=== PATIENT | female | born 1995 | race African-American/Black ===

== ENCOUNTER 2021-12-02 20:27 | Emergency (ER) | payer BC ==
[~2021-12-02] VITALS: Ht 167.6 cm; Wt 136.1 kg
[2021-12-02 20:59] LABS: BASOPHILS % 0.1 % (0.0-1.0); EOSINOPHILS # (AUTO) 0.1 (0.0-0.4); EOSINOPHILS % 0.8 % (0.0-6.0); HEMATOCRIT 41.9 % (34.2-44.1); HEMOGLOBIN 13.5 g/dL (12.0-16.0); LYMPHOCYTES % 30.7 % (18.0-39.1); MEAN CORPUSCULAR HEMOGLOBIN 28.6 pg (28-32); MEAN CORPUSCULAR HGB CONC 32.2 g/dL (31-35); MEAN CORPUSCULAR VOLUME 88.8 fL (81-99); MONOCYTES # (AUTO) 0.7 (0.2-0.8); MONOCYTES % 7.4 % (4.4-11.3); NEUTROPHILS % 60.8 % (38.7-80.0); PLATELET COUNT 260 x10e3/uL (140-360); RED BLOOD COUNT 4.72 x10e6/uL (3.6-5.1); RED CELL DISTRIBUTION WIDTH 12.8 % (11.7-14.4)
[2021-12-02 21:13] LABS: INR 0.9; PARTIAL THROMBOPLASTIN TIME 26.8 seconds (23.8-35.5); PROTHROMBIN TIME 12.8 seconds (11.9-14.5)
[2021-12-02 21:16] LABS: ANION GAP 14.4 mmol/L (8-16); CALCIUM 9.3 mg/dL (8.4-10.2); CREATININE, SERUM 1.1 mg/dL (0.57-1.11); POTASSIUM 3.4 mmol/L (3.5-5.1)
[2021-12-02 22:19] LABS: CLARITY,URINE CLOUDY (CLEAR); COLOR,URINE YELLOW (YELLOW); LEUKOCYTE ESTERASE ,URINE NEGATIVE (NEGATIVE); NITRITE,URINE NEGATIVE (NEGATIVE)
[2021-12-02 22:20] LABS: KETONES,URINE TRACE (NEGATIVE); PROTEIN,URINE DIPSTICK 1+ (NEGATIVE); URINE UROBILINOGEN 0.2 mg/dL (0.2 - 1)
[2021-12-02 22:22] LABS: BACTERIA,URINE MODERATE /HPF; EPITHELIAL CELLS,URINE MANY /LPF
[2021-12-02 22:23] LABS: RBC,URINE 21-50 /HPF (0-5)
[2021-12-03] MEDS ORDERED: KETOROLAC TROME10 MG PO (01:02)
[2021-12-03] MEDS ORDERED: HYDROCODON-ACE1 EAC9 PO (01:02)
[2021-12-03] MEDS ORDERED: ONDANSETRON ODT4 MG PO (01:02)
[2021-12-03] MEDS ORDERED: CEFDINIR300 MG PO (01:02)
== END 2021-12-03 01:30 | disposition home or self-care (01) ==
LOC: ER 20:52
DX: R10.32 Left lower quadrant pain (principal); N13.2 Hydronephrosis with renal and ureteral calculous obstruction; E28.2 Polycystic ovarian syndrome
CPT/HCPCS: 36415; 74176; 80048; 81001; 84702; 85025; 85610; 85730; 99284